=== PATIENT | male | born 1960 | race African-American/Black ===

== ENCOUNTER 2018-05-19 14:18 | Emergency (ER) | payer SELFPAY ==
[~2018-05-19] VITALS: Ht 175.3 cm; Wt 100.0 kg
[2018-05-19] MEDS ORDERED: HYDRALAZINE 20MG/ML VIAL IV ONE (16:30)
[2018-05-19 16:42] LABS: CHLORIDE 108 mEq/L (98-107)
[2018-05-19 16:45] LABS: BASOPHILS % 0.6 % (0.0-2.0); EOSINOPHILS % 0.5 % (0.0-5.0); HEMOGLOBIN. 16.8 g/dL (14.0-18.0); LYMPHOCYTES % 31.8 % (20.0-50.0); MEAN CORPUSCULAR HEMOGLOBIN 31.9 pg (28.0-32.0); MEAN CORPUSCULAR VOLUME 93.3 fL (80.0-94.0); MONOCYTES % 10.5 % (2.0-8.0); NEUTROPHILS % 56.6 % (40.0-76.0); PLATELET 139 x1000/uL (130-400); RED BLOOD CELL COUNT 5.26 mill/uL (4.7-6.1); RED CELL DISTRIBUTION WIDTH 14.2 % (11.6-14.6)
[2018-05-19 16:46] LABS: INR 1.1; PARTIAL THROMBOPLASTIN TIME 26.5 sec (23.4-31.0); PROTHROMBIN TIME 10.7 sec (9.1-11.1)
[2018-05-19] MEDS ORDERED: LABETALOL 5MG/ML SYR 20 MG/4 ML SYRINGE IV ONE ×2 (19:15→22:15)
[2018-05-19] MEDS ORDERED: ASPIRIN 325MG EC TABLET PO ONE (19:15)
[2018-05-19] MEDS ORDERED: IOHEXOL-300 100 ML BOTTLE ONE (20:32)
[2018-05-19] MEDS ORDERED: IOHEXOL-350 100 ML BOTTLE ONE (20:33)
[2018-05-19] MEDS ORDERED: ONDANSETRON HCL 4MG/2ML INJ IV ONE (21:15)
[2018-05-19] MEDS ORDERED: MORPHINE SULFATE 4 MG/ML CPJ (NOT FOR IM USE) IV ONE (21:15)
[2018-05-19 22:14] VITALS: BP 168/119
== END 2018-05-19 21:53 ==
LOC: ER 14:18 → CANBEDREQ 05-20 02:51
DX: I63.9 Cerebral infarction, unspecified (principal); I66.3 Occlusion and stenosis of cerebellar arteries; I67.1 Cerebral aneurysm, nonruptured; I16.0 Hypertensive urgency; I10 Essential (primary) hypertension; R47.81 Slurred speech; Z91.013 Allergy to seafood
CPT/HCPCS: 36415; 70496; 70498; 71045; 80053; 82962; 83880; 84484; 85025; 85610; 85730; 86850; 86900; 86901; 93005; 96374; 96375; 96376; 99291; J0360; J2270; J2405; J3490; Q9967

== ENCOUNTER 2022-04-12 08:56 | Inpatient (IN) | payer BC, MEDICAID ==
[~2022-04-12] VITALS: Ht 180.3 cm; Wt 84.8 kg
[2022-04-12 09:56] LABS: BASOPHILS % 0.5 % (0.0-2.0); EOSINOPHILS % 0.7 % (0.0-5.0); HEMATOCRIT. 36.8 % (42.0-52.0); HEMOGLOBIN. 12.6 g/dL (14.0-18.0); LYMPHOCYTES % 10.6 % (20.0-50.0); MEAN CORPUSCULAR HEMOGLOBIN 31.3 pg (28.0-32.0); MEAN CORPUSCULAR VOLUME 91.5 fL (80.0-94.0); MEAN PLATELET VOLUME 9.9 fl (7.4-10.4); MONOCYTES % 10.4 % (2.0-8.0); NEUTROPHILS % 77.8 % (40.0-76.0); PLATELET 89 x1000/uL (130-400); RED BLOOD CELL COUNT 4.03 mill/uL (4.7-6.1); RED CELL DISTRIBUTION WIDTH 14.4 % (11.6-14.6)
[2022-04-12 09:59] LABS: CHLORIDE 106 mEq/L (98-107)
[2022-04-12] MEDS ORDERED: HYDRALAZINE 20MG/ML VIAL IV NR (10:15)
[2022-04-12] MEDS ORDERED: ASPIRIN 325MG EC TABLET PO ONE ×2 (11:00→12:00)
[2022-04-12] MEDS ORDERED: HYDRALAZINE 20MG/ML VIAL IV ONE (11:00)
[2022-04-12 20:10] VITALS: BP 229/161
[2022-04-12] MEDS: ENOXAPARIN 30MG/0.3ML SYR SUBCUT SCH ×2 (21:00→22:09)
[2022-04-12] MEDS ORDERED: ACETAMINOPHEN 325MG TABLET PO PRN (21:45)
[2022-04-12] MEDS ORDERED: ZOLPIDEM TARTRATE 5MG TABLET PO PRN (21:45)
[2022-04-12] MEDS ORDERED: DOCUSATE SODIUM 100MG CAPSULE PO PRN (21:45)
[2022-04-12] MEDS ORDERED: ONDANSETRON HCL 4MG/2ML INJ IV PRN (21:45)
[2022-04-12] MEDS ORDERED: ENOXAPARIN 40MG/0.4ML SYR SUBCUT SCH (21:45)
[2022-04-12] MEDS ORDERED: HYDR100T26 PO (22:07)
[2022-04-12] MEDS ORDERED: ASPI-1497 PO (22:08)
[2022-04-12] MEDS ORDERED: METO-539 PO (22:08)
[2022-04-12] MEDS: ATENOLOL 50 MG TABLET PO SCH (22:10)
[2022-04-12 23:37] VITALS: BP 216/149
[2022-04-13] VITALS (8 sets, daily range): BP systolic 98–204; BP diastolic 64–152
[2022-04-13] MEDS ORDERED: LISINOPRIL 20MG TABLET PO NR
[2022-04-13] MEDS ORDERED: [UNRECOGNIZED DRUG - CODE] PO (01:44)
[2022-04-13] MEDS ORDERED: NIFE-32 MT (01:44)
[2022-04-13] MEDS ORDERED: ACET-2708 MT (01:44)
[2022-04-13] MEDS ORDERED: ONDA4TAB50 MT (01:44)
[2022-04-13] MEDS ORDERED: AMLO10TA80 MT (01:44)
[2022-04-13] MEDS ORDERED: ATOR-2 MT (01:44)
[2022-04-13] MEDS ORDERED: *PATIENT'S OWN MEDICATION STORAGE XX SCH (02:00)
[2022-04-13] MEDS ORDERED: NITROGLYCERIN OINT 1GM/INCH UDPKT TD NR (03:00)
[2022-04-13] MEDS: NITROGLYCERIN OINT 1GM/INCH UDPKT TD SCH ×3 (03:13→16:53)
[2022-04-13 08:14] LABS: BASOPHILS % 0.2 % (0.0-2.0); EOSINOPHILS % 0.1 % (0.0-5.0); HEMATOCRIT. 36.1 % (42.0-52.0); HEMOGLOBIN. 12.4 g/dL (14.0-18.0); LYMPHOCYTES % 8.3 % (20.0-50.0); MEAN CORPUSCULAR HEMOGLOBIN 31.6 pg (28.0-32.0); MEAN CORPUSCULAR VOLUME 92.3 fL (80.0-94.0); MEAN PLATELET VOLUME 11.2 fl (7.4-10.4); MONOCYTES % 9.1 % (2.0-8.0); NEUTROPHILS % 82.3 % (40.0-76.0); PLATELET 101 x1000/uL (130-400); RED BLOOD CELL COUNT 3.91 mill/uL (4.7-6.1); RED CELL DISTRIBUTION WIDTH 14.6 % (11.6-14.6)
[2022-04-13] MEDS: ASPIRIN 325MG EC TABLET PO SCH (09:00)
[2022-04-13] MEDS ORDERED: LISINOPRIL 20MG TABLET PO SCH (09:00)
[2022-04-13] MEDS: ATENOLOL 50 MG TABLET PO SCH (09:00)
[2022-04-13] MEDS ORDERED: NITROGLYCERIN OINT 1GM/INCH UDPKT TD SCH (09:00)
[2022-04-13] MEDS ORDERED: HYDRALAZINE HCL 100MG TABLET PO NR (10:00)
[2022-04-13] MEDS: CLONIDINE 0.1MG TABLET PO SCH ×2 (11:39→16:52)
[2022-04-13] MEDS ORDERED: HYDRALAZINE HCL 100MG TABLET PO SCH (14:00)
[2022-04-13] MEDS: NIFEDIPINE XL 60MG TAB PO SCH (14:40)
[2022-04-13] MEDS ORDERED: LORAZEPAM 1MG TABLET PO NR (15:00)
[2022-04-13] MEDS: ATORVASTATIN CALCIUM 40MG TABLET PO SCH (21:00)
[2022-04-13] MEDS: ENOXAPARIN 30MG/0.3ML SYR SUBCUT SCH (21:03)
[2022-04-13] MEDS: HYDRALAZINE HCL 50MG TABLET PO SCH (21:04)
[2022-04-14] MEDS: CLONIDINE 0.1MG TABLET PO SCH ×4 (00:05→18:00)
[2022-04-14 04:30] VITALS: BP 104/78
[2022-04-14] MEDS: HYDRALAZINE HCL 50MG TABLET PO SCH ×3 (05:51→21:32)
[2022-04-14 06:43] LABS: BASOPHILS % 0.4 % (0.0-2.0); EOSINOPHILS % 0.3 % (0.0-5.0); HEMATOCRIT. 36.6 % (42.0-52.0); HEMOGLOBIN. 12.4 g/dL (14.0-18.0); LYMPHOCYTES % 17.2 % (20.0-50.0); MEAN CORPUSCULAR HEMOGLOBIN 31.6 pg (28.0-32.0); MEAN CORPUSCULAR VOLUME 92.9 fL (80.0-94.0); MEAN PLATELET VOLUME 12.1 fl (7.4-10.4); MONOCYTES % 8.5 % (2.0-8.0); NEUTROPHILS % 73.6 % (40.0-76.0); PLATELET 106 x1000/uL (130-400); RED BLOOD CELL COUNT 3.93 mill/uL (4.7-6.1); RED CELL DISTRIBUTION WIDTH 14.7 % (11.6-14.6)
[2022-04-14 07:42] VITALS: BP 130/95
[2022-04-14] MEDS: ATENOLOL 50 MG TABLET PO SCH (09:00)
[2022-04-14] MEDS: ASPIRIN 325MG EC TABLET PO SCH (09:26)
[2022-04-14] MEDS: LISINOPRIL 40MG TABLET PO SCH (09:27)
[2022-04-14] MEDS: NIFEDIPINE XL 60MG TAB PO SCH (09:28)
[2022-04-14 12:00] VITALS: BP 117/83
[2022-04-14] MEDS ORDERED: SODIUM CHLORIDE 0.45% 1,000 ML IV SCH (13:30)
[2022-04-14] MEDS ORDERED: LORAZEPAM 1MG TABLET PO NR (14:15)
[2022-04-14] MEDS: SODIUM CHLORIDE 0.9% 1,000 ML IV SCH (15:12)
[2022-04-14 16:00] VITALS: BP 113/71
[2022-04-14 16:58] LABS: CLARITY URINE CLEAR (CLEAR); COLOR URINE YELLOW (YELLOW); KETONES URINE TRACE (NEGATIVE); LEUKOCYTE ESTERASE URINE NEGATIVE (NEGATIVE); NITRITE URINE NEGATIVE (NEGATIVE); OCCULT BLOOD URINE TRACE (NEGATIVE); PROTEIN URINE 3+ (NEGATIVE); SPECIFIC GRAVITY URINE 1.017 (1.005-1.030); UROBILINOGEN URINE 0.2 E.U./dL (0.2-1.0)
[2022-04-14 17:07] LABS: *AMPHETAMINES SCREEN URINE NEGATIVE (NEGATIVE); *BARBITURATES SCREEN URINE NEGATIVE (NEGATIVE); *BENZODIAZEPINES SCREEN URINE NEGATIVE (NEGATIVE); *COCAINE SCREEN URINE NEGATIVE (NEGATIVE); CANNABINOID URINE SCREEN PRESUMTIVE POSITIVE (NEGATIVE); METHADONE URINE SCREEN NEGATIVE (NEGATIVE); OPIATES URINE SCREEN NEGATIVE (NEGATIVE); PHENCYCLIDINE URINE SCREEN NEGATIVE (NEGATIVE)
[2022-04-14 19:40] VITALS: BP 132/85
[2022-04-14] MEDS: ENOXAPARIN 30MG/0.3ML SYR SUBCUT SCH (21:32)
[2022-04-14] MEDS: ATORVASTATIN CALCIUM 40MG TABLET PO SCH (21:32)
[2022-04-15] VITALS (8 sets, daily range): BP systolic 100–141; BP diastolic 66–92
[2022-04-15] MEDS: SODIUM CHLORIDE 0.9% 1,000 ML IV SCH ×4 (00:10→20:26)
[2022-04-15] MEDS: HYDRALAZINE HCL 50MG TABLET PO SCH ×3 (05:36→21:22)
[2022-04-15] MEDS: CLONIDINE 0.1MG TABLET PO SCH ×5 (06:26→23:19)
[2022-04-15 07:43] LABS: BASOPHILS % 0.4 % (0.0-2.0); EOSINOPHILS % 0.7 % (0.0-5.0); HEMATOCRIT. 35.4 % (42.0-52.0); HEMOGLOBIN. 11.9 g/dL (14.0-18.0); LYMPHOCYTES % 18.2 % (20.0-50.0); MEAN CORPUSCULAR HEMOGLOBIN 31.4 pg (28.0-32.0); MEAN CORPUSCULAR VOLUME 93.9 fL (80.0-94.0); MEAN PLATELET VOLUME 11.7 fl (7.4-10.4); MONOCYTES % 7.8 % (2.0-8.0); NEUTROPHILS % 72.9 % (40.0-76.0); PLATELET 115 x1000/uL (130-400); RED BLOOD CELL COUNT 3.78 mill/uL (4.7-6.1); RED CELL DISTRIBUTION WIDTH 14.7 % (11.6-14.6)
[2022-04-15 08:03] LABS: PHOSPHORUS 3.1 mg/dL (2.5-4.9)
[2022-04-15] MEDS: ATENOLOL 50 MG TABLET PO SCH (09:00)
[2022-04-15] MEDS: LISINOPRIL 40MG TABLET PO SCH (10:10)
[2022-04-15] MEDS: ASPIRIN 325MG EC TABLET PO SCH (10:10)
[2022-04-15] MEDS: NIFEDIPINE XL 60MG TAB PO SCH (10:10)
[2022-04-15] MEDS ORDERED: LORAZEPAM 1MG TABLET PO NR (10:30)
[2022-04-15] MEDS: ATORVASTATIN CALCIUM 40MG TABLET PO SCH (20:26)
[2022-04-15] MEDS: ENOXAPARIN 30MG/0.3ML SYR SUBCUT SCH (20:26)
[2022-04-16 04:20] VITALS: BP 146/96
[2022-04-16] MEDS: SODIUM CHLORIDE 0.9% 1,000 ML IV SCH ×2 (05:42→16:26)
[2022-04-16] MEDS: CLONIDINE 0.1MG TABLET PO SCH ×3 (05:43→17:02)
[2022-04-16] MEDS: HYDRALAZINE HCL 50MG TABLET PO SCH ×3 (05:43→21:06)
[2022-04-16 08:00] VITALS: BP_SYST 130; BP_SYST 136; BP_DIAS 80; BP_DIAS 84
[2022-04-16] MEDS: ATENOLOL 50 MG TABLET PO SCH (09:00)
[2022-04-16] MEDS: NIFEDIPINE XL 60MG TAB PO SCH (09:00)
[2022-04-16] MEDS: LISINOPRIL 40MG TABLET PO SCH (09:46)
[2022-04-16] MEDS: ASPIRIN 325MG EC TABLET PO SCH (09:46)
[2022-04-16 09:57] LABS: BASOPHILS % 0.3 % (0.0-2.0); HEMOGLOBIN. 10.8 g/dL (14.0-18.0); LYMPHOCYTES % 13.3 % (20.0-50.0); MEAN CORPUSCULAR HEMOGLOBIN 32.1 pg (28.0-32.0); MEAN CORPUSCULAR VOLUME 94.9 fL (80.0-94.0); MEAN PLATELET VOLUME 11.2 fl (7.4-10.4); MONOCYTES % 9.8 % (2.0-8.0); NEUTROPHILS % 75.6 % (40.0-76.0); PLATELET 102 x1000/uL (130-400); RED BLOOD CELL COUNT 3.37 mill/uL (4.7-6.1); RED CELL DISTRIBUTION WIDTH 14.7 % (11.6-14.6)
[2022-04-16 11:02] LABS: PHOSPHORUS 3.2 mg/dL (2.5-4.9)
[2022-04-16 12:00] VITALS: BP 133/83
[2022-04-16 16:00] VITALS: BP 141/81
[2022-04-16 20:00] VITALS: BP 163/88
[2022-04-16] MEDS ORDERED: NIFE-32 MT (20:34)
[2022-04-16] MEDS ORDERED: ATOR-2 MT (20:34)
[2022-04-16] MEDS ORDERED: HYDR100T26 PO (20:34)
[2022-04-16] MEDS ORDERED: METO-539 PO (20:34)
[2022-04-16] MEDS: ATORVASTATIN CALCIUM 40MG TABLET PO SCH (21:06)
[2022-04-16] MEDS: ENOXAPARIN 30MG/0.3ML SYR SUBCUT SCH (21:07)
[2022-04-17] VITALS: BP 132/88
[2022-04-17] MEDS: CLONIDINE 0.1MG TABLET PO SCH ×2 (00:08→06:00)
[2022-04-17 05:30] VITALS: BP 145/94
[2022-04-17] MEDS: SODIUM CHLORIDE 0.9% 1,000 ML IV SCH (05:59)
[2022-04-17] MEDS: HYDRALAZINE HCL 50MG TABLET PO SCH (06:00)
[2022-04-17 07:55] VITALS: BP 117/75
[2022-04-17 08:01] LABS: BASOPHILS % 0.4 % (0.0-2.0); EOSINOPHILS % 2.4 % (0.0-5.0); HEMATOCRIT. 28.9 % (42.0-52.0); HEMOGLOBIN. 9.9 g/dL (14.0-18.0); LYMPHOCYTES % 15.1 % (20.0-50.0); MEAN CORPUSCULAR HEMOGLOBIN 31.8 pg (28.0-32.0); MEAN CORPUSCULAR VOLUME 92.8 fL (80.0-94.0); MEAN PLATELET VOLUME 11.7 fl (7.4-10.4); MONOCYTES % 8.7 % (2.0-8.0); NEUTROPHILS % 73.4 % (40.0-76.0); PLATELET 104 x1000/uL (130-400); RED BLOOD CELL COUNT 3.12 mill/uL (4.7-6.1); RED CELL DISTRIBUTION WIDTH 14.3 % (11.6-14.6)
[2022-04-17 08:22] LABS: PHOSPHORUS 3.3 mg/dL (2.5-4.9)
[2022-04-17] MEDS: ASPIRIN 325MG EC TABLET PO SCH (08:59)
[2022-04-17] MEDS: LISINOPRIL 40MG TABLET PO SCH (08:59)
[2022-04-17] MEDS: NIFEDIPINE XL 60MG TAB PO SCH (08:59)
[2022-04-17] MEDS: ATENOLOL 50 MG TABLET PO SCH (09:00)
[2022-04-17 11:11] VITALS: BP 117/75
== END 2022-04-17 12:20 | disposition home health service (06) | DRG 64 ==
LOC: ER 09:11 → 6WST 12:01 → EDBEDREQTM 12:03 → EDBEDREQ 12:03 → CANRESERV 15:28 → ENRESERV 15:28 → CANRESERV 16:26 → ENRESERV 16:26
PROVIDERS: ADMIT Internal Medicine Pulmonary Disease; ATTEND Internal Medicine Pulmonary Disease
PROC: 4A00X4Z Measurement of Central Nervous Electrical Activity, External Approach (ICD-10-PCS; principal; 2022-04-14)
DX: I63.81 Other cerebral infarction due to occlusion or stenosis of small artery (principal); K85.90 Acute pancreatitis without necrosis or infection, unspecified; I67.4 Hypertensive encephalopathy; I16.1 Hypertensive emergency; N17.9 Acute kidney failure, unspecified; K86.3 Pseudocyst of pancreas; G90.8 Other disorders of autonomic nervous system; E78.5 Hyperlipidemia, unspecified; N18.30 Chronic kidney disease, stage 3 unspecified; I16.0 Hypertensive urgency; D64.9 Anemia, unspecified; D69.6 Thrombocytopenia, unspecified; I12.9 Hypertensive chronic kidney disease with stage 1 through stage 4 chronic kidney disease, or unspecified chronic kidney disease; F10.10 Alcohol abuse, uncomplicated; F17.200 Nicotine dependence, unspecified, uncomplicated; Z86.73 Personal history of transient ischemic attack (TIA), and cerebral infarction without residual deficits; Z91.013 Allergy to seafood; Z88.8 Allergy status to other drugs, medicaments and biological substances; Z79.899 Other long term (current) drug therapy
CPT/HCPCS: 36415; 70551; 71045; 76770; 80048; 80053; 80061; 80305; 81003; 82550; 83735; 83880; 84100; 84443; 84484; 85025; 92610; 93005; 93306; 93880; 95816; 97162; 99291; J0360; J1650; J2405; J7030; A4315

== ENCOUNTER 2023-05-27 04:12 | Emergency (ER) | payer BC, MEDICARE ==
[~2023-05-27] VITALS: Ht 180.3 cm; Wt 94.7 kg
[~2023-05-27 04:12] MED LIST: ACET-2708 MT; ASPI-1497 PO; ATOR-2 MT; HYDR100T26 PO; METO-539 PO; NIFE-32 MT; ONDA4TAB50 MT; [UNRECOGNIZED DRUG - CODE] PO
[2023-05-27 04:20] VITALS: BP 187/122; PULSE 75; RESP 20; TEMP 98.5; O2SAT 99
[2023-05-27 04:48] LABS: BASOPHILS % 0.7 % (0.0-2.0); EOSINOPHILS % 1.1 % (0.0-5.0); HEMATOCRIT. 45.9 % (42.0-52.0); HEMOGLOBIN. 15.3 g/dL (14.0-18.0); LYMPHOCYTES % 24.7 % (20.0-50.0); MEAN CORPUSCULAR HEMOGLOBIN 31.3 pg (28.0-32.0); MEAN CORPUSCULAR HGB CONC 33.4 g/dL (31.0-37.0); MEAN CORPUSCULAR VOLUME 93.6 fL (80.0-94.0); MEAN PLATELET VOLUME 10.8 fl (7.4-10.4); NEUTROPHILS % 64.5 % (40.0-76.0); PLATELET 124 x1000/uL (130-400); RED BLOOD CELL COUNT 4.91 mill/uL (4.7-6.1); RED CELL DISTRIBUTION WIDTH 14.6 % (11.6-14.6); WHITE BLOOD COUNT 5.1 x1000/uL (4.5-11.0)
[2023-05-27 04:58] LABS: CHLORIDE 115 mEq/L (98-107); INDEX HEMOLYSI 1 (1-3); INDEX ICTERIC 1 (1-4); INDEX LIPEMIC 1 (1-3); POTASSIUM 3.6 mEq/L (3.5-5.1); SODIUM 141 mEq/L (136-145)
[2023-05-27 05:08] LABS: ALANINE AMINOTRANSFERASE 29 IU/L (13-61); ALBUMIN 4.1 g/dL (3.4-5.0); ASPARTATE AMINOTRANSFERASE 24 IU/L (15-37); BILIRUBIN TOTAL 0.8 mg/dL (0.1-1.0); CARBON DIOXIDE 21 mEq/L (21-32); GLUCOSE 162 mg/dL (70-105); NT PRO B-TYPE NATRIURETIC PEP 1414 pg/mL (5-125); PROTEIN TOTAL 7.7 g/dL (6.0-8.3); TROPONIN I HIGH SENSITIVITY 50 ng/L (<78); UREA NITROGEN BLOOD 32 mg/dL (7-21)
== END 2023-05-27 09:15 | disposition left against medical advice (07) ==
LOC: ER 04:12
DX: Z53.21 Procedure and treatment not carried out due to patient leaving prior to being seen by health care provider (principal); I49.9 Cardiac arrhythmia, unspecified
CPT/HCPCS: 36415; 71045; 80053; 83880; 84484; 85025; 93005; 99281